=== PATIENT | male | born 1990 | race Two or more races ===

== ENCOUNTER 2021-03-03 15:16 | Emergency (ER) | payer BC ==
[~2021-03-03] VITALS: Ht 170.2 cm; Wt 66.0 kg
[2021-03-03] MEDS ORDERED: VISCOUS LIDOCAINE 2% 15 ML UDC PO STA (20:50)
[2021-03-03] MEDS ORDERED: MAGNESIUM/ALUMINUM HYDROXIDE/SIMETHICONE 30ML UDC PO STA (20:50)
[2021-03-03 23:30] LABS: BASOPHILS % 0.4 % (0.0-2.0); EOSINOPHILS % 1.3 % (0.0-5.0); HEMATOCRIT. 45.4 % (42.0-52.0); HEMOGLOBIN. 15.7 g/dL (14.0-18.0); LYMPHOCYTES % 17.7 % (20.0-50.0); MEAN CORPUSCULAR HEMOGLOBIN 30.8 pg (28.0-32.0); MEAN CORPUSCULAR VOLUME 88.9 fL (80.0-94.0); MEAN PLATELET VOLUME 9.8 fl (7.4-10.4); MONOCYTES % 8.5 % (2.0-8.0); NEUTROPHILS % 72.1 % (40.0-76.0); PLATELET 232 x1000/uL (130-400); RED CELL DISTRIBUTION WIDTH 13.7 % (11.6-14.6)
[2021-03-03 23:39] LABS: CHLORIDE 105 mEq/L (98-107)
[2021-03-03 23:41] LABS: PROTHROMBIN TIME 10.9 sec (9.6-11.0)
[2021-03-04 01:42] LABS: HEPATITIS B SURFACE ANTIGEN NEGATIVE
[2021-03-04 03:16] VITALS: BP 132/80
== END 2021-03-04 03:16 | disposition home or self-care (01) ==
LOC: ER 15:16
DX: K75.9 Inflammatory liver disease, unspecified (principal)
CPT/HCPCS: 36415; 76705; 80053; 80307; 85025; 86705; 86709; 86803; 87340; 93005; 99285